=== PATIENT | male | born 1970 | race Caucasian/White ===

== ENCOUNTER 2019-12-29 17:07 | Emergency (ER) | payer BC ==
[2019-12-29] MEDS ORDERED: Sodium Chloride 0.9% 10 ML Syringe FLUSH PRN (17:33)
[2019-12-29] MEDS ORDERED: Aspirin 81 MG Tab.Chew PO ONE (17:33)
--- NOTE | 2019-12-29 18:16 | CR ---
Chest: Portable view of the chest was obtained. Comparison: No previous chest imaging. Cardiothymic silhouette is normal. Paratracheal soft tissues are slightly prominent which is likely due to portable technique. Lungs are clear with no acute parenchymal change. Bony structures are unremarkable. Impression: 1. Nothing acute is seen on portable chest x-ray. Diagnostic code #1 Study was dictated in MDT
--- NOTE | 2019-12-29 19:04 | EDM.PDOC ---
ED HPI GENERAL MEDICAL PROBLEM - General Chief Complaint: Chest Pain Stated Complaint: CHEST TIGHTNESS Time Seen by Provider: 12/29/19 17:28 Source of Information: Reports: Patient, Family History Limitations: Reports: No Limitations - History of Present Illness INITIAL COMMENTS - FREE TEXT/NARRATIVE: The patient presents with chest pain. This has been going on for about a week. He is also short of breath. He gets dizzy at times. He has a headache at times and he has some numbness to his left hand at times. He has no appetite. He has no abdominal pain, nausea or vomiting. He has no history of heart disease, hypertension, hypercholesterolemia, diabetes and he does not smoke. Onset: Gradual Duration: Week(s): (1) Location: Reports: Chest Quality: Reports: Ache Severity: Moderate Improves with: Reports: None Worsens with: Reports: None Associated Symptoms: Reports: Chest Pain, Shortness of Breath. Denies: Cough, Fever/Chills, Headaches, Nausea/Vomiting Upper Chest Pain Score (Numeric/FACES): 3 - Related Data Allergies Allergy/AdvReac Type Severity Reaction Status Date / Time No Known Allergies Allergy Verified 12/29/19 17:28 Home Meds: Home Meds Amoxicillin/Clavulanate K [Augmentin 875-125 MG] 1 tab PO BID 12/29/19 [History] Past Medical History - Past Health History Medical/Surgical History: Denies Medical/Surgical History Social & Family History - Tobacco Use Smoking Status *Q: Never Smoker Second Hand Smoke Exposure: No - Caffeine Use Caffeine Use: Reports: Coffee, Tea - Recreational Drug Use Recreational Drug Use: No ED ROS GENERAL - Review of Systems Review Of Systems: See Below Constitutional: Reports: No Symptoms HEENT: Reports: No Symptoms Respiratory: Reports: Shortness of Breath Cardiovascular: Reports: Chest Pain, Lightheadedness Endocrine: Reports: No Symptoms GI/Abdominal: Reports: No Symptoms : Reports: No Symptoms Musculoskeletal: Reports: No Symptoms Skin: Reports: No Symptoms ED EXAM, GENERAL - Physical Exam Exam: See Below Exam Limited By: No Limitations General Appearance: Alert, No Apparent Distress Ears: Normal External Exam Nose: Normal Inspection Head: Atraumatic, Normocephalic Neck: Normal Inspection Respiratory/Chest: No Respiratory Distress, Lungs Clear, Normal Breath Sounds Cardiovascular: Regular Rate, Rhythm, No Edema, No Murmur GI/Abdominal: Soft, Non-Tender, No Organomegaly, No Mass Back Exam: Normal Inspection EKG INTERPRETATION EKG Date: 12/29/19 Time: 17:46 Rhythm: Other (sinus bradycardia) Rate (Beats/Min): 55 [place]: Normal P-Wave: Present QRS: Normal ST-T: Normal QT: Normal Course - Vital Signs Last Recorded V/S: Last Vital Signs Temp 97.8 F 12/29/19 17:17 Pulse 55 L 12/29/19 17:17 Resp 18 12/29/19 17:17 BP 149/90 H 12/29/19 17:17 Pulse Ox 100 12/29/19 17:17 - Orders/Labs/Meds Orders: Active Orders 24 hr Category Date Time Status Cardiac Monitoring [RC] . DIRECTED Care 12/29/19 17:34 Active EKG Documentation Completion [RC] STAT Care 12/29/19 17:34 Active Holter Monitor 48 Hours [RC] .PRN Care 12/29/19 19:23 Ordered Peripheral IV Care [RC] . DIRECTED Care 12/29/19 17:34 Active TROPONIN I [CHEM] Stat Lab 12/29/19 19:19 Ordered Sodium Chloride 0.9% [Saline Flush] Med 12/29/19 17:33 Active 10 ml FLUSH ASDIRECTED PRN Peripheral IV Insertion Adult [OM.PC] Stat Oth 12/29/19 17:33 Ordered Medication Orders Sodium Chloride (Saline Flush) 10 ml FLUSH ASDIRECTED PRN PRN Reason: Keep Vein Open Last Admin: 12/29/19 17:45 Dose: 10 ml Labs: Laboratory Tests 12/29/19 12/29/19 12/29/19 Range/Units 17:43 17:43 17:43 WBC 7.87 (4.23-9.07) K/mm3 RBC 5.64 (4.63-6.08) M/mm3 Hgb 17.1 (13.7-17.5) gm/dl Hct 50.3 (40.1-51.0) % MCV 89.2 (79.0-92.2) fl MCH 30.3 (25.7-32.2) pg MCHC 34.0 (32.2-35.5) g/dl RDW Std Deviation 41.9 (35.1-43.9) fL Plt Count 298 (163-337) K/mm3 MPV 9.3 L (9.4-12.3) fl Neut % (Auto) 62.7 (34.0-67.9) % Lymph % (Auto) 21.5 L (21.8-53.1) % [place] % (Auto) 11.3 (5.3-12.2) % Eos % (Auto) 2.7 (0.8-7.0) Baso % (Auto) 1.0 (0.1-1.2) % Neut # (Auto) 4.94 (1.78-5.38) K/mm3 Lymph # (Auto) 1.69 (1.32-3.57) K/mm3 [place] # (Auto) 0.89 H (0.30-0.82) K/mm3 Eos # (Auto) 0.21 (0.04-0.54) K/mm3 Baso # (Auto) 0.08 (0.01-0.08) K/mm3 D-Dimer, Quantitative < 0.19 L (0.19-0.50) mg/L Sodium 141 (136-145) mEq/L Potassium 3.9 (3.5-5.1) mEq/L Chloride 104 (98-107) mEq/L Carbon Dioxide 25 (21-32) mEq/L Anion Gap 15.9 H (5-15) BUN 17 (7-18) mg/dL Creatinine 1.1 (0.7-1.3) mg/dL Est Cr Clr Drug Dosing 76.78 mL/min Estimated GFR (MDRD) > 60 (>60) mL/min BUN/Creatinine Ratio 15.5 (14-18) Glucose 105 (74-106) mg/dL Calcium 9.5 (8.5-10.1) mg/dL Total Bilirubin 1.0 (0.2-1.0) mg/dL AST 26 (15-37) U/L ALT 50 (16-63) U/L Alkaline Phosphatase 65 (46-116) U/L Troponin I < 0.017 (0.00-0.056) ng/mL Total Protein 7.9 (6.4-8.2) g/dl Albumin 4.7 (3.4-5.0) g/dl Globulin 3.2 gm/dL Albumin/Globulin Ratio 1.5 (1-2) Meds: Medications Generic Name Dose Route Start Last Admin Trade Name Stacy PRN Reason Stop Dose Admin Sodium Chloride 10 ml 12/29/19 17:33 12/29/19 17:45 Saline Flush FLUSH 10 ml ASDIRECTED PRN Administration Keep Vein Open Discontinued Medications Generic Name Dose Route Start Last Admin Trade Name Stacy PRN Reason Stop Dose Admin Aspirin 324 mg 12/29/19 17:33 12/29/19 17:45 Aspirin PO 12/29/19 17:34 324 mg ONETIME ONE Administration - Re-Assessments/Exams Free Text/Narrative Re-Assessment/Exam: 12/29/19 19:07 I ordered an IV saline lock, aspirin, EKG, CXR, and labs. His EKG shows a NSR with no acute changes. His CXR looks good. 12/29/19 19:08 His CBC and CMP looks good. His tropinin is negative. His D-dimer looks good. 12/29/19 19:24 I will get him on a holter monitor and do a repeat troponin. Departure - Departure Time of Disposition: 19:25 Disposition: Home, Self-Care 01 Condition: Good Clinical Impression: Atypical chest pain Referrals: Ken Sheldon Jr, MD [Primary Care Provider] - 1 Week Forms: ED Department Discharge Additional Instructions: Take motrin or aleve for the pain. Wear the holter monitor for 2 days[address] Follow up with Dr Sheldon within a week. Please return if you are worse. Sepsis Event Note - Evaluation Sepsis Screening Result: No Definite Risk - Focused Exam Vital Signs: Vital Signs Temp Pulse Resp BP Pulse Ox 12/29/19 17:17 97.8 F 55 L 18 149/90 H 100 Date Exam was Performed: 12/29/19 Time Exam was Performed: 19:24 - My Orders Last 24 Hours: My Active Orders 12/29/19 17:33 Sodium Chloride 0.9% [Saline Flush] 10 ml FLUSH ASDIRECTED PRN Peripheral IV Insertion Adult [OM.PC] Stat 12/29/19 17:34 Cardiac Monitoring [RC] . DIRECTED EKG Documentation Completion [RC] STAT Peripheral IV Care [RC] . DIRECTED 12/29/19 19:19 TROPONIN I [CHEM] Stat 12/29/19 19:23 Holter Monitor 48 Hours [RC] .PRN - Assessment/Plan Last 24 Hours: My Active Orders 12/29/19 17:33 Sodium Chloride 0.9% [Saline Flush] 10 ml FLUSH ASDIRECTED PRN Peripheral IV Insertion Adult [OM.PC] Stat 12/29/19 17:34 Cardiac Monitoring [RC] . DIRECTED EKG Documentation Completion [RC] STAT Peripheral IV Care [RC] . DIRECTED 12/29/19 19:19 TROPONIN I [CHEM] Stat 12/29/19 19:23 Holter Monitor 48 Hours [RC] .PRN
== END 2019-12-29 20:04 | disposition home or self-care (01) ==
LOC: JD.ED 17:07
DX: R07.89 Other chest pain (principal)
CPT/HCPCS: 36415; 71045; 80053; 84484; 85025; 85379; 93005; 93225; 93226; 99285; A9270; 93010; 99283